=== PATIENT | male | born 1975 | race Caucasian/White ===

== ENCOUNTER 2024-06-08 17:21 | Emergency (ER) | payer OTHER ==
[~2024-06-08] VITALS: Ht 160 cm; Wt 96.9 kg
[2024-06-08 18:31] VITALS: BP 130/72; PULSE 77; RESP 18; TEMP 98.4; O2SAT 96
[2024-06-08] MEDS ORDERED: CYCL-837 PO (19:18)
[2024-06-08] MEDS ORDERED: IBUP-1456 PO (19:18)
== END 2024-06-08 20:00 | disposition home or self-care (01) ==
LOC: ER 17:21
DX: S16.1XXA Strain of muscle, fascia and tendon at neck level, initial encounter (principal); Z90.49 Acquired absence of other specified parts of digestive tract; Z79.1 Long term (current) use of non-steroidal anti-inflammatories (NSAID); V49.49XA Driver injured in collision with other motor vehicles in traffic accident, initial encounter; Y93.89 Activity, other specified; Y92.89 Other specified places as the place of occurrence of the external cause; Y99.8 Other external cause status
CPT/HCPCS: 72040; 72100

== ENCOUNTER 2024-08-01 17:12 | Emergency (ER) | payer OTHER ==
[~2024-08-01] VITALS: Ht 160 cm; Wt 98.4 kg
[~2024-08-01 17:12] MED LIST: CYCL-837 PO; IBUP-1456 PO
[2024-08-01] MEDS ORDERED: AZIT-43 PO (19:36)
[2024-08-01] MEDS ORDERED: PRED20TA2 PO (19:36)
[2024-08-01 19:50] VITALS: BP 122/83; TEMP 98.3
[2024-08-01 19:52] VITALS: PULSE 76; RESP 18; O2SAT 97
== END 2024-08-01 19:55 | disposition home or self-care (01) ==
LOC: ER 17:15
DX: J20.9 Acute bronchitis, unspecified (principal); R11.2 Nausea with vomiting, unspecified; Z90.49 Acquired absence of other specified parts of digestive tract
CPT/HCPCS: 71045